=== PATIENT | male | born 1995 | race African-American/Black ===

== ENCOUNTER 2017-06-18 12:46 | Emergency (ER) | payer OTHER ==
[2017-06-18 12:53] VITALS: BP 115/57
--- NOTE | 2017-06-18 12:56 | EDPHY ---
H & P Stated Complaint: Woke up with sore, reddened and weepy right eye. Time Seen by Provider: 06/18/17 12:56 HPI/ROS: HPI: This is a 22-year-old male who presents with Chief Complaint: Woke up with sore, reddened and weepy right eye. Location: Right eye Quality: Foreign body sensation Duration: 1-3 hours prior to arrival Signs and Symptoms: no fever, no nausea, no vomiting, + photophobia, no noise sensitivity, no neck stiffness, no ear pain, no tinnitus, no nasal congestion, no sinus pressure, no weakness, no radiation, no aura Timing: Acute Severity:09/12 Context: Patient is a contact lens wear, changes them daily, reports that he woke up this morning with a foreign body sensation in the 2-3 o'clock position of his right eye. He reports that his eye feels itchy and has become reddened due to his room rubbing his eye. He denies working around wood or metal. Has yearly eye exam. Takes his contacts out at night when he goes to bed. Currently wearing eyeglasses. Denies any vision changes. Reports tetanus current. Denies seasonal allergies. Denies actual eye pain/ocular discharge. Modifying Factors: Not tried anything for the symptoms. Comment: ROS: see HPI Constitutional: No fever, no chills, no weight loss Eyes: No blurred vision Respiratory: No shortness of breath, no cough Cardiovascular: No chest pain, no palpitations Gastrointestinal: No nausea, no vomiting, no diarrhea, no hematemesis, no blood in stool Genitourinary: No dysuria, no blood in urine Extremities: No myalgias, no edema Neurologic: No weakness, no numbness Skin: No rashes, no petechiae Hematologic: No bruising, no bleeding MEDICAL/SURGICAL/SOCIAL HISTORY: Medical history: Generally healthy. Does not take any regular medications. Surgical history: Denies Social history: Student. General appearance: Polite and cooperative well-appearing black adult male, awake and alert, no distress Visual Acuity: noted from Nurse's notes. Pupils: equal round and reactive to light. EOMI. Lids: no edema or swelling Skin: no proptosis, no periorbital erythema or swelling, no vesicles Conjunctivae: Mildly injected, no discharge, small thin piece of hair seen near 2:00 position crossing over pupil Cornea: exam with fluorescein shows no uptake Source: Patient Exam Limitations: No limitations - Personal History Current Tetanus Diphtheria and Acellular Pertussis (TDAP): Yes - Medical/Surgical History Hx Asthma: No Hx Chronic Respiratory Disease: No Hx Diabetes: No Hx Cardiac Disease: No Hx Renal Disease: No Hx Cirrhosis: No Hx Alcoholism: No Hx HIV/AIDS: No Hx Splenectomy or Spleen Trauma: No Other PMH: Denies - Social History Smoking Status: Never smoked Constitutional: Initial Vital Signs Temperature (C) 36.3 C 06/18/17 12:50 Heart Rate 69 06/18/17 12:50 Respiratory Rate 16 06/18/17 12:50 Blood Pressure 115/57 L 06/18/17 12:50 O2 Sat (%) 96 06/18/17 12:50 O2 Delivery Mode Room Air Allergies/Adverse Reactions: No Known Allergies Allergy (Unverified 06/18/17 12:53) Home Medications: Medication Instructions Recorded NK [No Known Home Meds] 06/18/17 Medical Decision Making Procedures: Procedure: Foreign body removal from cornea: Anesthesia: Topical. After verbal consent from the patient, thin piece of hair was removed from the cornea of the right eye. The foreign body was removed manually using a cotton tip applicator using direct visualization. Following removal there was no significant rust ring. There were no complications and the patient tolerated the procedure well. The procedure was performed by myself. ED Course/Re-evaluation: Small thin piece of hair removed using a cotton tip applicator No corneal abrasion seen. Irrigated copiously with normal saline Mild conjunctivitis seen; suspect irritant; given antibiotic eyedrops Patient reports relief of discomfort at discharge. Advised to follow up with Ophthalmology This patient was seen under the supervision of my secondary supervising physician. I evaluated care for this patient independently. Differential Diagnosis: Eye problem differential includes but is not limited to foreign body, conjunctivitis, iritis, uveitis, corneal abrasion. Departure - Departure Disposition: Home, Routine, Self-Care Clinical Impression: Foreign body of right eye Qualifiers: Encounter type: initial encounter Qualified Code(s): T15.91XA - Foreign body on external eye, part unspecified, right eye, initial encounter Acute conjunctivitis, right eye Qualifiers: Acute conjunctivitis type: unspecified Qualified Code(s): H10.31 - Unspecified acute conjunctivitis, right eye Condition: Good Instructions: Eye Foreign Body (ED), Conjunctivitis (ED) Additional Instructions: Please refrain for rubbing or scratching your eye. Apply cool compresses 2-3 times per day for the next 1-2 days to decrease inflammation. Apply tobramycin eyedrops to right eye every 6 hr while awake x 5 days. Follow-up with your eye doctor in 5-7 days. Eye Complaint: Return to the Emergency Department for any increase in eye pain, redness, swelling, discharge or any worsening of your vision. Referrals: Jennifer Hardy MD [Medical Doctor] - As per Instructions
[2017-06-18] MEDS ORDERED: FLUORESCEIN SOD/BENOXINATE HCL 20 DROPS/ML OPHT.BTL ONE (13:01)
[2017-06-18] MEDS ORDERED: TOBRAMYCIN 0.3% SOLN PREPACK OPHT.BTL TAKEHOME ONE (13:14)
== END 2017-06-18 13:26 | disposition home or self-care (01) ==
PROC: 08C8XZZ Extirpation of Matter from Right Cornea, External Approach (ICD-10-PCS; principal; 2017-06-18)
DX: T15.01XA Foreign body in cornea, right eye, initial encounter (principal); H10.31 Unspecified acute conjunctivitis, right eye; X58.XXXA Exposure to other specified factors, initial encounter; Y99.8 Other external cause status; Y93.89 Activity, other specified

== ENCOUNTER 2017-06-18 14:09 | Emergency (ER) | payer OTHER ==
[2017-06-18 14:39] VITALS: BP 112/69
--- NOTE | 2017-06-18 14:39 | EDPHY ---
H & P Time Seen by Provider: 06/18/17 14:37 HPI/ROS: HPI: This is a 22-year-old male who presents with Chief Complaint: Recurrence of foreign body sensation in right eye Location: Right eye Quality: Foreign body sensation Duration: 15-30 minute Signs and Symptoms:+ itchiness, + watery, no vision changes, no visual floaters , no photophobia Timing: Recurrent Severity: Mild Context: Patient was seen early in the emergency room by myself for foreign body sensation in right eye. Contact lens wear. Tetanus up-to-date. Small hair was removed from conjunctiva near 2 to 3:00 position. After further questioning, patient was not Given Tobramycin eyedrops per my order. He also reports that he has been itching and scratching his eye. He did not return home to apply cool compresses and did not wear sunglasses in the sunlight. He has not taking ibuprofen as recommended. Modifying Factors: None Comment: ROS: see HPI Constitutional: No fever, no chills, no weight loss Eyes: No blurred vision Respiratory: No shortness of breath, no cough Cardiovascular: No chest pain Gastrointestinal: No nausea, no vomiting, no diarrhea Genitourinary: No dysuria Extremities: No myalgias Neurologic: No weakness, no numbness Skin: No rashes Hematologic: No bruising, no bleeding MEDICAL/SURGICAL/SOCIAL HISTORY: Medical history: Generally healthy. Does not take any regular medications. Surgical history: Denies Social history: Student. Visual Acuity: noted from Nurse's notes. Pupils: equal round and reactive to light. EOMI. Lids: no edema or swelling Skin: no proptosis, no periorbital erythema or swelling, no vesicles Conjunctivae: Mildly injected, no discharge, no foreign bodies Cornea: exam with fluorescein shows small area of uptake in area foreign body sensation Anterior chamber: normal, no hyphema or hypopyon Source: Patient Exam Limitations: No limitations - Medical/Surgical History Hx Asthma: No Hx Chronic Respiratory Disease: No Hx Diabetes: No Hx Cardiac Disease: No Hx Renal Disease: No Hx Cirrhosis: No Hx Alcoholism: No Hx HIV/AIDS: No Hx Splenectomy or Spleen Trauma: No Other PMH: Denies - Social History Smoking Status: Never smoked Constitutional: Initial Vital Signs Temperature (C) 36.6 C 06/18/17 14:37 Heart Rate 61 06/18/17 14:37 Respiratory Rate 16 06/18/17 14:37 Blood Pressure 112/69 06/18/17 14:37 O2 Sat (%) 98 06/18/17 14:37 O2 Delivery Mode Room Air Allergies/Adverse Reactions: No Known Allergies Allergy (Unverified 06/18/17 12:53) Home Medications: Medication Instructions Recorded NK [No Known Home Meds] 06/18/17 Medical Decision Making ED Course/Re-evaluation: Patient was not given tobramycin drops per my order and was noncompliant with recommendation. Given ibuprofen and tobramycin drops. Nursing supervisor slitting and shipping notify; will be sent to manager of medical regarding secondary ER visit not his fault. No foreign bodies appreciated. Superficial small corneal abrasion noted from patient scratching eye Ophthalmology follow-up This patient was seen under the supervision of my secondary supervising physician. I evaluated care for this patient independently. Discussed this patient with Dr. Herr who did not see the patient. Differential Diagnosis: Differential diagnosis includes noncompliance, corneal abrasion, foreign body. - Data Points Medications Given: Discontinued Medications Fluorescein Sodium/Benoxinate HCl (Flurox) 2 drops OP EDNOW ONE Stop: 06/18/17 14:48 Last Admin: 06/18/17 14:48 Dose: 2 drop Departure - Departure Disposition: Home, Routine, Self-Care Clinical Impression: Right corneal abrasion Qualifiers: Encounter type: initial encounter Qualified Code(s): S05.01XA - Injury of conjunctiva and corneal abrasion without foreign body, right eye, initial encounter Condition: Good Instructions: Corneal Abrasion (ED) Additional Instructions: Please use Tobramycin in the right eye every 4 hr while awake x 5 days. Take Ibuprofen 600-800 mg with food every 8 hr as needed for pain. Apply cool compresses to your right eye to decrease pain and inflammation. Do not rub or scratch your right eye. Do not wear contact lenses until all pain has resolved and obtain clearance to do so by Ophthalmology. Eye Complaint: Return to the Emergency Department for any increase in eye pain, redness, swelling, discharge or any worsening of your vision. Referrals: Jennifer Hardy MD [Medical Doctor] - 1-2 days without fail
[2017-06-18] MEDS ORDERED: FLUORESCEIN SOD/BENOXINATE HCL 20 DROPS/ML OPHT.BTL OP ONE (14:47)
[2017-06-18] MEDS ORDERED: TOBRAMYCIN 0.3% SOLN PREPACK OPHT.BTL TAKEHOME ONE (15:14)
[2017-06-18] MEDS ORDERED: IBUPROFEN 800 MG TAB PO ONE (15:15)
== END 2017-06-18 15:28 | disposition home or self-care (01) ==
DX: S05.01XD Injury of conjunctiva and corneal abrasion without foreign body, right eye, subsequent encounter (principal); X58.XXXD Exposure to other specified factors, subsequent encounter